=== PATIENT | female | born 1990 | race Two or more races ===

== ENCOUNTER 2022-01-07 14:51 | Emergency (ER) | payer OTHER ==
[~2022-01-07] VITALS: Ht 154.9 cm; Wt 61.2 kg
== END 2022-01-07 23:00 | disposition home or self-care (01) ==
LOC: ER 14:51
DX: O26.892 Other specified pregnancy related conditions, second trimester (principal); Z3A.17 17 weeks gestation of pregnancy; R42 Dizziness and giddiness; Z20.822 Contact with and (suspected) exposure to COVID-19

== ENCOUNTER 2022-02-14 09:01 | Outpatient (CLI) | payer OTHER | END 2022-02-14 10:15 | disposition home or self-care (01) | LOC: PRENATAL 09:01 | PROVIDERS: ATTEND Obstetrics & Gynecology Maternal & Fetal Medicine | DX: O35.0XX0 Maternal care for (suspected) central nervous system malformation in fetus, not applicable or unspecified (principal); O35.3XX0 Maternal care for (suspected) damage to fetus from viral disease in mother, not applicable or unspecified; O34.219 Maternal care for unspecified type scar from previous cesarean delivery; Z3A.22 22 weeks gestation of pregnancy ==

== ENCOUNTER 2022-04-11 14:49 | Outpatient (CLI) | payer OTHER | END 2022-04-11 17:15 | disposition home or self-care (01) | LOC: OBS/DEL 14:49 | PROVIDERS: ATTEND Obstetrics & Gynecology | DX: O47.03 False labor before 37 completed weeks of gestation, third trimester (principal); Z3A.30 30 weeks gestation of pregnancy ==

== ENCOUNTER 2022-06-06 10:15 | Inpatient (IN) | payer OTHER ==
[~2022-06-06] VITALS: Ht 154.9 cm; Wt 3.2 kg
[2022-06-13] MEDS ORDERED: COMPLETENATE T1 EACH PO (08:55)
== END 2022-06-16 12:22 | disposition home or self-care (01) | DRG 785 ==
LOC: O/R 06-13 06:00 → LDR 06-13 09:44 → OB/GYN 06-13 17:33
PROVIDERS: ADMIT Obstetrics & Gynecology; ATTEND Obstetrics & Gynecology
PROC: 0UB70ZZ Excision of Bilateral Fallopian Tubes, Open Approach (ICD-10-PCS; 2022-06-13)
PROC: 4A1HXCZ Monitoring of Products of Conception, Cardiac Rate, External Approach (ICD-10-PCS; 2022-06-13)
PROC: 10D00Z1 Extraction of Products of Conception, Low, Open Approach (ICD-10-PCS; principal; 2022-06-13 17:15)
DX: O32.2XX0 Maternal care for transverse and oblique lie, not applicable or unspecified (principal); O34.211 Maternal care for low transverse scar from previous cesarean delivery; Z30.2 Encounter for sterilization; Z3A.39 39 weeks gestation of pregnancy; Z37.0 Single live birth; Z20.822 Contact with and (suspected) exposure to COVID-19